=== PATIENT | male | born 1960 | race Caucasian/White ===

== ENCOUNTER 2016-11-21 16:44 | Emergency (ER) | payer SELFPAY ==
[~2016-11-21] VITALS: Ht 182.9 cm; Wt 103.0 kg
[2016-11-21 16:47] VITALS: BP 149/97; PULSE 90; RESP 17; TEMP 98.2; O2SAT 97
[2016-11-21] MEDS ORDERED: TETANUS/DIPHTHERIA TOXOID ADULT 0.5 ML VIAL IM ONE (17:00)
[2016-11-21] MEDS ORDERED: CEPH-460 PO (17:22)
--- NOTE | 2016-11-21 17:33 | PD ---
HPI Chief Complaint: Laceration/Skin Injury Time Seen by Provider: 17:23 Travel History International Travel<30 days: No Contact w/Intl Traveler<30days: No Traveled to known affect area: No History of Present Illness HPI 56-year-old right-handed male presents to the emergency room for evaluation of a laceration to his left proximal thumb. Patient states he was using a continuous washer operator with his right hand when he slipped and the water cut into his skin. At the same time he was also poked with a nail. He applied pressure and came to the emergency room. Patient reports moderate pain at the site of the wound and in the surrounding tissue. Patient denies bleeding disorders. Denies history of diabetes. Unknown last tetanus. [facility] Past Medical History Medical History: Denies Significant Hx Tetanus Vaccination: Unknown Influenza Vaccination: No ?: Not Past Surgical History Surgical History: No Previous Surgery Social History Alcohol Use: Yes ("RARE") Tobacco Use: No Substance Use: No Allergies-Medications (Allergen,Severity, Reaction): Coded Allergies: No Known Allergies (Unverified , 11/21/16) Reported Meds & Prescriptions Reported Meds & Active Scripts Active No Active Prescriptions or Reported Medications Review of Systems Except as stated in HPI: all other systems reviewed are Neg Physical Exam Narrative GENERAL: Well-nourished, well-developed male in no acute distress. Afebrile. Ambulatory. SKIN: Focused skin assessment warm/dry. There is a 2 cm deep laceration to the left proximal thumb. It is well-approximated. Hemostasis controlled. HEAD: Normocephalic. EYES: No scleral icterus. No injection or drainage. NECK: Supple, trachea midline. No JVD or lymphadenopathy. CARDIOVASCULAR: Regular rate and rhythm without murmurs, gallops, or rubs. RESPIRATORY: Breath sounds equal bilaterally. No accessory muscle use. EXTREMITY: Extreme tenderness to palpation at the site of the wound and surrounding tissue. Full range of motion in all joints. No joint swelling/ injury. Less than 2 second capillary refill distally. PSYCHIATRIC: No delusional thought processes. No hallucinations. Data Data Last Documented VS Vital Signs Date Time Temp Pulse Resp B/P Pulse Ox O2 Delivery O2 Flow Rate FiO2 11/21/16 16:47 98.2 90 17 149/97 97 Orders Tetanus/Diphtheria Tox Adult (Tetanus/Di (11/21/16 17:00) MDM Medical Decision Making Medical Screen Exam Complete: Yes Emergency Medical Condition: Yes Medical Record Reviewed: Yes Differential Diagnosis Tendon injury versus abrasion versus laceration Narrative Course 56-year-old male presents to the emergency room for evaluation of a laceration to his left proximal thumb that occurred just prior to arrival. Skin was cut with a continuous washer operator shortly after being cut by a nail. Tetanus was updated. Hemostasis controlled. There is a 2 cm slightly deep laceration. It is tender to palpation. Area would be amendable to both sutures and Dermabond. Patient was offered both options and preferred Dermabond. Area was thoroughly cleansed and irrigated with 1 bottle of Irramax, Betadine, and ChloraPrep. Wound was approximated with Steri-Strips and glue was applied. Patient will be discharged with Keflex given the location and depth of wound. He was given strict return precautions in case of infection and told to keep the wound clean and dry. He understands and agrees to this plan. Diagnosis Primary Impression: Laceration of left hand Qualified Code: S61.412A - Laceration of left hand without foreign body, initial encounter Referrals: Primary Care Physician Patient Instructions: General Instructions, Laceration (ED) Additional Instructions: Rest and drink plenty of fluids. Take Keflex as directed, until gone. Follow up with a primary care physician. Return to emergency room for worsening symptoms, as discussed. Med/Other Pt SpecificInfo: Prescription(s) given Scripts Cephalexin (Keflex)500 Mg Ktc092 Mg PO Q6H 7 Days Ref 0 Prov:Laura Funk DO 11/21/16 Disposition: 01 DISCHARGE HOME Condition: Stable Eileen Amaya November 21, 2016 17:33
== END 2016-11-21 17:40 | disposition home or self-care (01) ==
LOC: PHEFT 16:44
DX: S61.012A Laceration without foreign body of left thumb without damage to nail, initial encounter (principal); S61.032A Puncture wound without foreign body of left thumb without damage to nail, initial encounter; Z23 Encounter for immunization; W29.8XXA Contact with other powered hand tools and household machinery, initial encounter; W45.0XXA Nail entering through skin, initial encounter; Y93.H9 Activity, other involving exterior property and land maintenance, building and construction; Y92.9 Unspecified place or not applicable; Y99.8 Other external cause status
CPT/HCPCS: 12001; 90471; 90714